=== PATIENT | male | born 1995 | race Two or more races ===

== ENCOUNTER 2017-01-26 20:45 | Emergency (ER) | payer OTHER ==
[2017-01-26 20:54] VITALS: BP 125/61; PULSE 80; RESP 16; TEMP 98.2; O2SAT 97
--- NOTE | 2017-01-26 21:19 | EDPHY ---
H & P Time Seen by Provider: 01/26/17 21:00 HPI/ROS: CHIEF COMPLAINT: Concerns over STD HISTORY OF PRESENT ILLNESS: 21-year-old male arrives via private vehicle in the ER concern over possible STD exposure. States that he has been involved unprotected female anal intercourse repeatedly, most recently today and is concerned that he may have had exposure to a sexually transmitted disease. To the best of his knowledge the female he is involved with has no STDs. He has no history of STD. He is asymptomatic. Specifically, no urethral discharge, no skin rash, no genitalia lesion, no dysuria no hematuria. PHYSICAL EXAM (Prior to examination, patient consented to physical exam, hands were washed and my usual and customary physical exam procedures followed) 1) GENERAL: Well-developed, well-nourished, alert and oriented. Appears to be in no acute distress. 2) HEAD: Normocephalic 3) HEENT: sclera anicteric 4) LUNGS: Breathing comfortably. Smoking Status: Current some day smoker Constitutional: Initial Vital Signs Temperature (C) 36.8 C 01/26/17 20:51 Heart Rate 80 01/26/17 20:51 Respiratory Rate 16 01/26/17 20:51 Blood Pressure 125/61 H 01/26/17 20:51 O2 Sat (%) 97 01/26/17 20:51 O2 Delivery Mode Room Air Allergies/Adverse Reactions: No Known Allergies Allergy (Unverified 01/26/17 20:54) Home Medications: Medication Instructions Recorded NK [No Known Home Meds] 01/26/17 MDM/Departure - MDM ED Course/Re-evaluation: This time, the patient is asymptomatic. He is concerned and is requesting testing "for all diseases ". I have had a lengthy discussion with the patient and recommend he follow up at [facility] or with other community resources such as [facility] to discuss STD testing for him and his partner. At this time there is no indication for prophylactic or empiric treatment. I did recommend that if he is concerned about STDs in the future to wear a condom. He feels comfortable with this plan. All questions and concerns addressed by myself. He feels comfortable being discharged. Care of patient under supervision of secondary supervising physician Dr Nieves . - Depart Disposition: Home, Routine, Self-Care Clinical Impression: STD (male) Condition: Good Instructions: Safe Sex Practices for Adolescents (ED), Safe Sex (ED), Condom Use (ED), Sexually Transmitted Diseases (ED) Referrals: [facility] [Clinic] - 1-2 days without fail [facility] [[facility]] - As per Instructions [facility] [Cl[facility]] - As per Instructions
== END 2017-01-26 21:28 | disposition home or self-care (01) ==
DX: Z20.2 Contact with and (suspected) exposure to infections with a predominantly sexual mode of transmission (principal); F17.200 Nicotine dependence, unspecified, uncomplicated